=== PATIENT | female | born 1930 | race Caucasian/White ===

== ENCOUNTER 2018-04-14 22:34 | Inpatient (IN) | payer MEDICARE, OTHER ==
[~2018-04-14] VITALS: Ht 157.5 cm; Wt 74.8 kg
--- NOTE | ~2018-04-14 | OP ---
PATIENT NAME: RAVINDRA ROWLAND MEDICAL RECORD: [id number] :[birth year] LOCATION:[id number] ADMISSION DATE:04/15/18 SURGEON: TAVO MALDONADO MD DATE OF OPERATION: 04/15/2018 PREOPERATIVE DIAGNOSIS: Intertrochanteric hip fracture of the right hip. POSTOPERATIVE DIAGNOSIS: Intertrochanteric hip fracture of the right hip. PROCEDURE: Cephalomedullary fixation (gamma nail) of the right hip for intertrochanteric hip fracture. SURGEON: Tavo Maldonado MD ANESTHESIA: General. INTRAOPERATIVE COMPLICATIONS: None. SUMMARY OF PATHOLOGIC FINDINGS: Consistent with preoperative diagnosis, the patient had intertrochanteric hip fracture as seen on preoperative radiographs. OPERATIVE SUMMARY IN DETAIL: After obtaining the appropriate preoperative orthopedic surgery consent as well as anesthetic consultation, evaluation, and clearance, the patient was brought to the operating room and placed on the operating table in supine position. After general laryngeal mask was administered, the patient was placed on the fracture table. She was well secured. Left leg was placed in the well leg singh. The right leg was placed in the traction boot. Reduction maneuver was performed under radiographic guidance that is the appropriate amount of traction and adduction. Having completed this, the hip was prepped and draped in routine sterile fashion. A small incision was made over the superior to the tip of the greater trochanter. An awl was then used to create a starting point for the ball-tipped guidewire. Ball-tipped guidewire was placed on the femur. Reaming was then done over the femur. Having completed this, the 125 degree short gamma nail was put into the appropriate position as seen on AP and lateral fluoroscopic planes. Guidewire was then placed in a center low position of the head, again fluoroscopic AP and lateral planes. Appropriate reaming was then followed by insertion of the compression screw which was 95 compression screw. It was put to within 5 mm of the articular surface. The screw was then compressed. Derotational pin was deployed with 2 back turns to allow for compression, but not rotation. Having completed this, distal interlocking screw was done using the interlocking screw guide again under fluoroscopic control. Having completed this, the guide was removed. Final radiographs were taken in AP and lateral planes for radiologist review. The wounds irrigated and closed with #1 Vicryl followed by skin jael. Sterile dressings were applied. The patient was awakened and taken to recovery room in stable condition. All final needle and sponge counts were correct. ESTIMATED BLOOD LOSS: 200 cc. TRANSINT:[id number] Voice Confirmation ID: [id number] DOCUMENT ID: [id number] OPERATIVE REPORT [id number] RAVINDRA ROWLAND MD, TAVO PURVIS at 1123 CC: [id number] DICTATION DATE: 04/15/18 1349 FACE WORKER: 04/15/18 1404 ADM IN [place] [id number] [place] [address]
[2018-04-14] MEDS ORDERED: B/P PILL (22:39)
[2018-04-15] VITALS (7 sets, daily range): BP systolic 114–143; BP diastolic 62–80; Ht 157.5 cm; Wt 74.8 kg
[2018-04-15 01:04] LABS: BASOPHILS 0.2 % (0-2); EOSINOPHILS 0.4 % (0-7); HEMATOCRIT 35.7 % (36.0-48.0); HEMOGLOBIN 12.3 g/dL (12-16); IMMATURE GRANULOCYTES 0.2 % (0-5); LYMPHOCYTES 6.8 % (15-50); MCH 30.3 pg (26.0-34.0); MCHC 34.5 g/dL (31.0-37.0); MCV 87.9 fL (80.0-100.0); MEAN PLATELET VOLUME 10.3 fL (7.4-10.4); MONOCYTES 5.5 % (2-11); NEUTROPHILS 86.9 % (40-80); PLATELET COUNT 208 10x3/uL (130-400); RBC 4.06 10x6/uL (4.00-5.40); RDW 13.9 % (11.5-14.5); WBC 16.3 10x3/uL (4.8-10.8)
[2018-04-15 01:20] LABS: ALBUMIN 3.5 g/dL (3.4-5.0); ANION GAP 16.4 mmol/L (8-16); BILIRUBIN - TOTAL 0.3 mg/dL (0.2-1.3); CARBON DIOXIDE 22.6 mmol/L (21.0-32.0); CREATININE - SERUM 1.1 mg/dL (0.6-1.3); PROTEIN - SERUM 6.9 g/dL (6.4-8.2)
[2018-04-15 01:21] LABS: APTT 26.5 SECONDS (22.8-39.4); INR 1.04 (0.85-1.17); PROTIME 13.2 SECONDS (11.6-15.0)
[2018-04-15 02:48] LABS: APPEARANCE CLEAR (CLEAR); BILIRUBIN NEGATIVE (NEGATIVE); COLOR YELLOW (YELLOW); GLUCOSE NEGATIVE (NEGATIVE); KETONE SMALL mg/dL (NEGATIVE); NITRITE NEGATIVE (NEGATIVE); PROTEIN NEGATIVE (NEGATIVE); SPECIFIC GRAVITY 1.015 (1.005-1.020); UROBILINOGEN NORMAL (NORMAL)
[2018-04-16 01:08] VITALS: BP 139/75
[2018-04-16 04:45] VITALS: BP 124/67
[2018-04-16 05:36] LABS: BASOPHILS 0.2 % (0-2); EOSINOPHILS 0.1 % (0-7); IMMATURE GRANULOCYTES 0.3 % (0-5); LYMPHOCYTES 11.9 % (15-50); MCH 29.1 pg (26.0-34.0); MCHC 32.7 g/dL (31.0-37.0); MCV 88.9 fL (80.0-100.0); MEAN PLATELET VOLUME 10.3 fL (7.4-10.4); MONOCYTES 9.5 % (2-11); PLATELET COUNT 189 10x3/uL (130-400)
[2018-04-16 06:02] LABS: ALBUMIN 2.8 g/dL (3.4-5.0); ALKALINE PHOSPHATASE 59 U/L (46-116); BILIRUBIN - TOTAL 0.54 mg/dL (0.2-1.3); CALCIUM 8.5 mg/dL (8.5-10.1); CARBON DIOXIDE 25.7 mmol/L (21.0-32.0); CHLORIDE - SERUM 106 mmol/L (98-107); GLUCOSE 111 mg/dL (74-106); POTASSIUM - SERUM 4.1 mmol/L (3.5-5.1); PROTEIN - SERUM 5.8 g/dL (6.4-8.2); SODIUM 139 mmol/L (136-145)
[2018-04-16 06:03] LABS: HEMATOCRIT 28.1 % (36.0-48.0); HEMOGLOBIN 9.2 g/dL (12-16); RBC 3.16 10x6/uL (4.00-5.40); WBC 9.2 10x3/uL (4.8-10.8)
[2018-04-16 06:05] LABS: ALT (SGPT) 20 U/L (10-68); CALC OSMOLALITY 281 mosm/kg (275-300); CREATININE - SERUM 0.7 mg/dL (0.6-1.3); UREA NITROGEN 22 mg/dL (7-18); eGFR NON AFRICAN AMERICAN 83 mL/min (90-120)
[2018-04-16 08:00] VITALS: BP 121/68
[2018-04-16 12:15] VITALS: BP 128/64
[2018-04-16 16:00] VITALS: BP 120/66
[2018-04-16 20:46] VITALS: BP 142/77
[2018-04-17] VITALS (10 sets, daily range): BP systolic 99–138; BP diastolic 59–74
[2018-04-17 05:22] LABS: ALBUMIN 2.6 g/dL (3.4-5.0); ALKALINE PHOSPHATASE 61 U/L (46-116); ALT (SGPT) 19 U/L (10-68); BILIRUBIN - TOTAL 0.58 mg/dL (0.2-1.3); CALC OSMOLALITY 279 mosm/kg (275-300); CALCIUM 8.2 mg/dL (8.5-10.1); CARBON DIOXIDE 25.5 mmol/L (21.0-32.0); CHLORIDE - SERUM 106 mmol/L (98-107); CREATININE - SERUM 0.7 mg/dL (0.6-1.3); GLUCOSE 99 mg/dL (74-106); POTASSIUM - SERUM 3.7 mmol/L (3.5-5.1); PROTEIN - SERUM 5.7 g/dL (6.4-8.2); SODIUM 140 mmol/L (136-145); UREA NITROGEN 15 mg/dL (7-18); eGFR NON AFRICAN AMERICAN 83 mL/min (90-120)
[2018-04-17 05:25] LABS: BASOPHILS 0.3 % (0-2); EOSINOPHILS 0.9 % (0-7); HEMATOCRIT 24.9 % (36.0-48.0); HEMOGLOBIN 8.5 g/dL (12-16); IMMATURE GRANULOCYTES 0.3 % (0-5); LYMPHOCYTES 15.8 % (15-50); MCH 30.1 pg (26.0-34.0); MCHC 34.1 g/dL (31.0-37.0); MCV 88.3 fL (80.0-100.0); MEAN PLATELET VOLUME 10.4 fL (7.4-10.4); MONOCYTES 7.8 % (2-11); NEUTROPHILS 74.9 % (40-80); PLATELET COUNT 173 10x3/uL (130-400); RBC 2.82 10x6/uL (4.00-5.40); RDW 14.2 % (11.5-14.5); WBC 9.3 10x3/uL (4.8-10.8)
[2018-04-18 04:22] VITALS: BP 157/93
[2018-04-18 07:12] LABS: BASOPHILS 0.4 % (0-2); EOSINOPHILS 2.1 % (0-7); HEMATOCRIT 28.8 % (36.0-48.0); HEMOGLOBIN 9.7 g/dL (12-16); IMMATURE GRANULOCYTES 0.3 % (0-5); LYMPHOCYTES 15.4 % (15-50); MCH 29.2 pg (26.0-34.0); MCHC 33.7 g/dL (31.0-37.0); MCV 86.7 fL (80.0-100.0); MEAN PLATELET VOLUME 10.7 fL (7.4-10.4); MONOCYTES 9.6 % (2-11); NEUTROPHILS 72.2 % (40-80); PLATELET COUNT 158 10x3/uL (130-400); RBC 3.32 10x6/uL (4.00-5.40); RDW 14.8 % (11.5-14.5); WBC 7.5 10x3/uL (4.8-10.8)
[2018-04-18 07:37] LABS: ALBUMIN 2.5 g/dL (3.4-5.0); ALKALINE PHOSPHATASE 61 U/L (46-116); ALT (SGPT) 18 U/L (10-68); CALC OSMOLALITY 279 mosm/kg (275-300); CALCIUM 8.3 mg/dL (8.5-10.1); CARBON DIOXIDE 27.2 mmol/L (21.0-32.0); CHLORIDE - SERUM 107 mmol/L (98-107); CREATININE - SERUM 0.6 mg/dL (0.6-1.3); GLUCOSE 93 mg/dL (74-106); POTASSIUM - SERUM 3.5 mmol/L (3.5-5.1); PROTEIN - SERUM 5.4 g/dL (6.4-8.2); SODIUM 140 mmol/L (136-145); UREA NITROGEN 16 mg/dL (7-18); eGFR NON AFRICAN AMERICAN > 90 mL/min (90-120)
[2018-04-18 08:30] VITALS: BP 134/79
[2018-04-18 12:44] VITALS: BP 139/70
[2018-04-18 15:49] VITALS: BP 160/70
[2018-04-18 20:00] VITALS: BP 123/84
[2018-04-19 00:41] VITALS: BP 120/80
[2018-04-19 04:00] VITALS: BP 132/74
[2018-04-19 05:02] LABS: BASOPHILS 0.4 % (0-2); EOSINOPHILS 3.6 % (0-7); HEMATOCRIT 29.8 % (36.0-48.0); IMMATURE GRANULOCYTES 0.4 % (0-5); MCH 29.4 pg (26.0-34.0); MCHC 33.6 g/dL (31.0-37.0); MCV 87.6 fL (80.0-100.0); MONOCYTES 9.4 % (2-11); NEUTROPHILS 63.2 % (40-80); RDW 14.7 % (11.5-14.5); WBC 6.9 10x3/uL (4.8-10.8)
[2018-04-19 05:18] LABS: PLATELET COUNT 199 10x3/uL (130-400)
[2018-04-19 05:45] LABS: ALBUMIN 2.4 g/dL (3.4-5.0); ALKALINE PHOSPHATASE 62 U/L (46-116); ALT (SGPT) 19 U/L (10-68); CALC OSMOLALITY 282 mosm/kg (275-300); CALCIUM 8.3 mg/dL (8.5-10.1); CARBON DIOXIDE 26.5 mmol/L (21.0-32.0); CHLORIDE - SERUM 106 mmol/L (98-107); CREATININE - SERUM 0.6 mg/dL (0.6-1.3); GLUCOSE 92 mg/dL (74-106); POTASSIUM - SERUM 3.6 mmol/L (3.5-5.1); PROTEIN - SERUM 5.6 g/dL (6.4-8.2); SODIUM 141 mmol/L (136-145); UREA NITROGEN 18 mg/dL (7-18); eGFR NON AFRICAN AMERICAN > 90 mL/min (90-120)
[2018-04-19 07:41] VITALS: BP 137/82
[2018-04-19] MEDS ORDERED: HYDROCODONE-APA1 TAB PO (08:21)
[2018-04-19] MEDS ORDERED: ELIQUIS2.5 MG PO (08:21)
[2018-04-19] MEDS ORDERED: COLACE100 MG PO (08:22)
== END 2018-04-19 09:54 | DRG 481 ==
LOC: D.ER 22:34 → D.MS 04-15 02:10
PROVIDERS: Emergency Medicine; Family Medicine; Orthopaedic Surgery
PROC: 0QS636Z Reposition Right Upper Femur with Intramedullary Internal Fixation Device, Percutaneous Approach (ICD-10-PCS; principal; 2018-04-15 13:00)
DX: S72.141A Displaced intertrochanteric fracture of right femur, initial encounter for closed fracture (principal); D62 Acute posthemorrhagic anemia; W01.0XXA Fall on same level from slipping, tripping and stumbling without subsequent striking against object, initial encounter; I10 Essential (primary) hypertension; R50.9 Fever, unspecified